=== PATIENT | female | born 1995 | race American Indian/Alaskan Native ===

== ENCOUNTER 2017-07-11 20:57 | Emergency (ER) | payer MEDICAID ==
[2017-07-11 22:36] VITALS: BP 130/73
[2017-07-11 23:31] LABS: Basophils % (Auto) 0.1 % (0.0-1.8); Eosinophils # (Auto) 0.1 K/mm3 (0.0-0.4); Eosinophils % (Auto) 0.8 % (0.0-4.3); Hematocrit 38.3 % (30.3-42.9); Hemoglobin 12.1 gm/dl (10.1-14.3); Lymphocytes # (Auto) 3.7 K/mm3 (1.2-5.4); Lymphocytes % (Auto) 29.1 % (13.4-35.0); Mean Corpuscular HGB Conc 32 % (30-34); Mean Corpuscular Volume 78 fl (79-97); Monocytes # (Auto) 1.1 K/mm3 (0.0-0.8); Monocytes % (Auto) 8.7 % (0.0-7.3); Platelet Count 338 K/mm3 (140-440); Red Blood Count 4.88 M/mm3 (3.65-5.03); Red Cell Distribution Width 15.4 % (13.2-15.2)
[2017-07-11 23:43] LABS: Alanine Aminotransferase 28 units/L (7-56); Albumin 4.3 g/dL (3.9-5); BUN/Creatinine Ratio 15; Blood Urea Nitrogen 9 mg/dL (7-17); Calcium 9.5 mg/dL (8.4-10.2); Hemolysis Index 0
[2017-07-11 23:49] LABS: Mean Corpuscular Hemoglobin 25 pg (28-32)
[2017-07-12 00:42] LABS: Bilirubin,Urine NEG (Negative); Blood,Urine NEG (Negative); Color,Urine Yellow (Yellow); Mucus,Urine 3+ /HPF; Nitrite,Urine NEG (Negative); Protein,Urine <15 mg/dL mg/dL (Negative); Urobilinogen,Urine < 2.0 mg/dL (<2.0)
== END 2017-07-12 00:19 | disposition left against medical advice (07) ==
LOC: ED 20:57
DX: O26.891 Other specified pregnancy related conditions, first trimester (principal); R10.9 Unspecified abdominal pain; Z53.21 Procedure and treatment not carried out due to patient leaving prior to being seen by health care provider
CPT/HCPCS: 36415; 80053; 81001; 84703; 85025

== ENCOUNTER 2017-10-05 21:55 | Emergency (ER) | payer MEDICAID ==
[2017-10-05 22:51] LABS: Basophils % (Auto) 0.1 % (0.0-1.8); Eosinophils # (Auto) 0.2 K/mm3 (0.0-0.4); Eosinophils % (Auto) 1.9 % (0.0-4.3); Hematocrit 39.3 % (30.3-42.9); Hemoglobin 12.3 gm/dl (10.1-14.3); Lymphocytes # (Auto) 3.6 K/mm3 (1.2-5.4); Lymphocytes % (Auto) 29.3 % (13.4-35.0); Mean Corpuscular HGB Conc 31 % (30-34); Mean Corpuscular Volume 81 fl (79-97); Monocytes # (Auto) 0.9 K/mm3 (0.0-0.8); Monocytes % (Auto) 7.3 % (0.0-7.3); Platelet Count 301 K/mm3 (140-440); Red Blood Count 4.86 M/mm3 (3.65-5.03); Red Cell Distribution Width 14.6 % (13.2-15.2)
[2017-10-05 22:59] LABS: Mean Corpuscular Hemoglobin 25 pg (28-32)
[2017-10-05 23:10] LABS: BUN/Creatinine Ratio 12; Blood Urea Nitrogen 7 mg/dL (7-17); Calcium 9.7 mg/dL (8.4-10.2); Hemolysis Index 13
[2017-10-05 23:39] LABS: Bacteria,Urine 4+ /HPF (Negative); Bilirubin,Urine NEG (Negative); Blood,Urine NEG (Negative); Color,Urine Yellow (Yellow); Mucus,Urine FEW /HPF; Protein,Urine <15 mg/dL mg/dL (Negative); Urobilinogen,Urine < 2.0 mg/dL (<2.0)
[2017-10-05 23:48] LABS: Amphetamine Screen,Urine PRESUMPTIVE NEGATIVE; Benzodiazepines Screen,Urine PRESUMPTIVE NEGATIVE; Cocaine Screen,Urine PRESUMPTIVE NEGATIVE; Methadone Screen,Urine PRESUMPTIVE NEGATIVE; Opiate Screen,Urine PRESUMPTIVE NEGATIVE
[2017-10-06 00:01] LABS: Cannabinoid Screen,Urine PRESUMPTIVE POSITIVE
--- NOTE | 2017-10-06 00:51 | Emergency Department Report ---
HPI - General Chief Complaint: Psych Time Seen by Provider: 10/06/17 00:26 - HPI HPI: Room 14 --> 15 The patient is a 22-year-old female presenting with a chief complaint of suicidal ideation. The patient states she came to the emergency department because she's had abdominal pain and suicidal ideation since yesterday. The patient states her daughter 2 years ago and this upsets her. The patient states since yesterday she has had suicidal ideation with plan to overdose on pills. Patient denies any actual attempt at harming herself. The patient states also since yesterday she's had midepigastric abdominal pain patient radiating down to the right lower quadrant/suprapubic region since yesterday. Patient currently denies abdominal pain. Patient denies nausea vomiting or diarrhea. Patient denies fever or vaginal bleeding. Location: Mental state, abdomen Duration: Constant since yesterday Quality: Suicidal Severity: Severe Modifying factors: [see above] Context: [see above] Mode of transportation: [not driving] ED Past Medical Hx - Past Medical History Hx Diabetes: Yes Hx Psychiatric Treatment: Yes (bipolar,depression,suicide attempts,drug abuse) Additional medical history: childbirth - Surgical History Past Surgical History?: No - Family History Family history: no significant - Social History Smoking Status: Never Smoker Substance Use Type: Marijuana - Medications Home Medications: Home Medications Medication Instructions Recorded Confirmed Last Taken Type metFORMIN [Glucophage] 500 mg PO BID 04/10/16 04/10/16 04/10/16 History ED Review of Systems ROS: Stated complaint: MH Other details as noted in HPI Constitutional: denies: fever Gastrointestinal: abdominal pain. denies: nausea, vomiting, diarrhea Genitourinary: denies: abnormal menses Psychiatric: suicidal thoughts Physical Exam - Physical Exam Vital Signs: Vital Signs 10/05/17 10/05/17 10/06/17 21:55 22:16 00:37 Temperature 98.4 F 98.4 F 98 F Pulse Rate 94 H 94 H 89 Respiratory 20 18 18 Rate Blood Pressure 133/79 133/79 Blood Pressure 132/77 [Left] O2 Sat by Pulse 99 99 100 Oximetry Physical Exam: GENERAL: The patient is well-developed well-nourished female standing in room not appearing to be in acute distress. [] HEENT: Normocephalic. Atraumatic. Extraocular motions are intact. Patient has moist mucous membranes. NECK: Supple. Trachea midline CHEST/LUNGS: Clear to auscultation. There is no respiratory distress noted. HEART/CARDIOVASCULAR: Regular. There is no tachycardia. There is no gallop rub or murmur. ABDOMEN: Abdomen is soft, nontender to palpation. There is no rebound or guarding. Patient has normal bowel sounds. SKIN: There is no rash. There is no diaphoresis. NEURO: The patient is awake, alert, and oriented. The patient is cooperative. The patient has normal speech and gait. MUSCULOSKELETAL:There is no evidence of acute injury. ED Course Vital Signs 10/05/17 10/05/17 10/06/17 21:55 22:16 00:37 Temperature 98.4 F 98.4 F 98 F Pulse Rate 94 H 94 H 89 Respiratory 20 18 18 Rate Blood Pressure 133/79 133/79 Blood Pressure 132/77 [Left] O2 Sat by Pulse 99 99 100 Oximetry ED Medical Decision Making - Lab Data Result diagrams: 10/05/17 22:26 10/05/17 22:26 Laboratory Tests 10/05/17 10/05/17 10/05/17 22:26 22:26 22:26 WBC RBC Hgb Hct MCV MCH MCHC RDW Plt Count Lymph % (Auto) [place] % (Auto) Eos % (Auto) Baso % (Auto) Lymph # [place] # Eos # Baso # Seg Neutrophils % Seg Neutrophils # Sodium 138 Potassium 3.7 Chloride 98.1 Carbon Dioxide 25 Anion Gap 19 BUN 7 Creatinine 0.6 L Estimated GFR > 60 BUN/Creatinine Ratio 12 Glucose 109 H Calcium 9.7 HCG, Quant Urine Color Urine Turbidity Urine pH Ur Specific [place] Urine Protein Urine Glucose (UA) Urine Ketones Urine Blood Urine Nitrite Urine Bilirubin Urine Urobilinogen Ur Leukocyte Esterase Urine WBC (Auto) Urine RBC (Auto) U Epithel Cells (Auto) Urine Bacteria (Auto) Urine Mucus Urine HCG, Qual Salicylates < 0.3 L Urine Opiates Screen Urine Methadone Screen Acetaminophen < 5.0 L Ur Barbiturates Screen Ur Phencyclidine Scrn Ur Amphetamines Screen U Benzodiazepines Scrn Urine Cocaine Screen U Marijuana (THC) Screen Drugs of Abuse Note Plasma/Serum Alcohol 10/05/17 10/05/17 10/05/17 22:26 22:26 23:10 WBC 12.2 H RBC 4.86 Hgb 12.3 Hct 39.3 MCV 81 MCH 25 L MCHC 31 RDW 14.6 Plt Count 301 Lymph % (Auto) 29.3 [place] % (Auto) 7.3 Eos % (Auto) 1.9 Baso % (Auto) 0.1 Lymph # 3.6 [place] # 0.9 H Eos # 0.2 Baso # 0.0 Seg Neutrophils % 61.4 Seg Neutrophils # 7.5 Sodium Potassium Chloride Carbon Dioxide Anion Gap BUN Creatinine Estimated GFR BUN/Creatinine Ratio Glucose Calcium HCG, Quant Urine Color Yellow Urine Turbidity Clear Urine pH 5.0 Ur Specific [place] 1.021 Urine Protein <15 mg/dl Urine Glucose (UA) Neg Urine Ketones Neg Urine Blood Neg Urine Nitrite Pos Urine Bilirubin Neg Urine Urobilinogen < 2.0 Ur Leukocyte Esterase Sm Urine WBC (Auto) 14.0 H Urine RBC (Auto) 4.0 U Epithel Cells (Auto) 12.0 Urine Bacteria (Auto) 4+ Urine Mucus Few Urine HCG, Qual Salicylates Urine Opiates Screen Urine Methadone Screen Acetaminophen Ur Barbiturates Screen Ur Phencyclidine Scrn Ur Amphetamines Screen U Benzodiazepines Scrn Urine Cocaine Screen U Marijuana (THC) Screen Drugs of Abuse Note Plasma/Serum Alcohol < 0.01 10/05/17 10/06/17 10/06/17 23:10 00:38 02:16 WBC RBC Hgb Hct MCV MCH MCHC RDW Plt Count Lymph % (Auto) [place] % (Auto) Eos % (Auto) Baso % (Auto) Lymph # [place] # Eos # Baso # Seg Neutrophils % Seg Neutrophils # Sodium Potassium Chloride Carbon Dioxide Anion Gap BUN Creatinine Estimated GFR BUN/Creatinine Ratio Glucose Calcium HCG, Quant < 2 Urine Color Urine Turbidity Urine pH Ur Specific [place] Urine Protein Urine Glucose (UA) Urine Ketones Urine Blood Urine Nitrite Urine Bilirubin Urine Urobilinogen Ur Leukocyte Esterase Urine WBC (Auto) Urine RBC (Auto) U Epithel Cells (Auto) Urine Bacteria (Auto) Urine Mucus Urine HCG, Qual Negative Salicylates Urine Opiates Screen Presumptive negative Urine Methadone Screen Presumptive negative Acetaminophen Ur Barbiturates Screen Presumptive negative Ur Phencyclidine Scrn Presumptive negative Ur Amphetamines Screen Presumptive negative U Benzodiazepines Scrn Presumptive negative Urine Cocaine Screen Presumptive negative U Marijuana (THC) Screen Presumptive positive Drugs of Abuse Note Disclamer Plasma/Serum Alcohol - Radiology Data Radiology results: report reviewed (right upper quadrant ultrasound), image reviewed (right upper quadrant ultrasound) Right upper quadrant ultrasound (read by radiologist)- Normal-appearing gallbladder and biliary tree - Differential Diagnosis suicidal ideation, UTI, , Critical care attestation.: If time is entered above; I have spent that time in minutes in the direct care of this critically ill patient, excluding procedure time. ED Disposition Clinical Impression: Suicidal ideation Disposition: [id number]/TX-65 PSY HOSP/PSY UNIT Is pt being admited?: No Does the pt Need Aspirin: No Condition: Serious Referrals: PRIMARY CARE, [Primary Care Provider] - 3-5 Days Time of Disposition: 02:49 (awaiting acceptance)
[2017-10-06 01:01] LABS: HCG Qualitative,Urine Negative (Negative)
--- NOTE | 2017-10-06 02:00 | Ultrasound Report ---
FINAL REPORT EXAM: US ABDOMEN LIMITED HISTORY: intermittent right upper quadrant abdominal pain TECHNIQUE: Routine imaging was obtained of the right upper quadrant. FINDINGS: The gallbladder is normal in size and wall thickness. Stones are not seen. The common bile duct measures 4 mm in diameter which is normal. The liver is normal size and echotexture. The pancreatic head appears normal. The body and tail are obscured by bowel gas. The right kidney is normal size contour and echotexture. There is no evidence of hydronephrosis. IMPRESSION: Normal-appearing gallbladder and biliary tree.
--- NOTE | 2017-10-06 13:40 | Consultation ---
History of Present Illness - Reason for Consult Consult date: 10/06/17 Reason for consult: Initial Psychiatric Evaluation - Chief Complaint Chief complaint: " Bad thoughts" - History of Present Psychiatric Illness The patient is a 22-year-old female who presents with a chief complaint of suicidal ideation. She has a plan to overdose on pills. She has a PPHx Bipolar Disorder (2015). She reports within the last week her symptoms have exacerbated after a card reading/psychic. She states, "recently, I found out I have uterine fibroids while in [place]." She reports decrease sleep, decrease appetite, and good energy. Endorses being easily irritated/agitated. Paranoid thoughts are noted. Patient hesitant to share thoughts. Appears suspicious of provider. Patient states that she self medicated with marijuana. Currently patient is not taking any psychiatric medications. She denies A/VH. Allergies: See list. Gelatin, latex, pork/porcin. Past psychiatric history: ODD (2010), ADHD (2010), bipolar (2014); 4 previous suicide attempts be drink intoxicants and taking pills; no outpatient psychiatrist; 3 previous inpatient psychiatric hospitalizations ([place] and [facility]). Past psychiatric medication trials: Trazodone-bad dreams; Seroquel- makes me gain weight; Zoloft-somewhat effective. History of trauma/abuse: Patient denies physical, sexual, or mental abuse. Drugs/alcohol abuse history: Marijuana- daily, approximately "10 blunts daily, " duration - all throughout the day, last use- 10/05/17, first use- age 13. UDS positive for marijuana. Social history: 11th grade; unemployed-no source of income; one daughter 2014 (stillborn); (2014); good support system-mother, best friend, and . Family history: Patient denies family history of psychiatric/substance abuse. Medications and Allergies Allergies Allergy/AdvReac Type Severity Reaction Status Date / Time gelatin Allergy Rash Verified 03/23/16 12:11 latex Allergy Rash Verified 03/23/16 12:11 Pork/Porcine Containing Allergy Rash Verified 03/23/16 12:11 Products Home Medications Medication Instructions Recorded Confirmed Last Taken Type metFORMIN [Glucophage] 500 mg PO BID 04/10/16 10/06/17 04/10/16 History Mental Status Exam - Vital signs Last Vital Signs Temp 98.6 F 10/06/17 08:00 Pulse 88 10/06/17 08:00 Resp 18 10/06/17 08:00 BP 137/75 10/06/17 08:00 Pulse Ox 98 10/06/17 08:00 - Exam Narrative exam: Mental Status Exam: General Appearance: Casually dressed- hospital gown Attitude/ Behavior: Cooperative Sensorium: Clear but at times distracted Orientation: Alert and oriented x 4 (person, place, time , and situation) Psychomotor & Musculoskeletal Activity: Ambulatory Speech: Normal rate and tone Mood: "Anxious and depressed" Affect: Constricted Thought Process: Circumstantial Thought Content: Reality oriented but paranoid Perception: Patient denies auditory/visual/tactile hallucinations Suicidal ideation/plan: + suicidal ideations with plan to overdose (intermittent ) Homicidal ideation/plan: Patient denies Insight: Poor Judgment: Poor Results Result Diagrams: 10/05/17 22:26 10/05/17 22:26 Abnormal lab results 10/05/17 10/05/17 10/05/17 Range/Units 22:26 22:26 22:26 WBC (4.5-11.0) K/mm3 MCH (28-32) pg [place] # (0.0-0.8) K/mm3 Creatinine 0.6 L (0.7-1.2) mg/dL Glucose 109 H (65-100) mg/dL Urine WBC (Auto) (0.0-6.0) /HPF Salicylates < 0.3 L (2.8-20.0) mg/dL Acetaminophen < 5.0 L (10.0-30.0) ug/mL 10/05/17 10/05/17 Range/Units 22:26 23:10 WBC 12.2 H (4.5-11.0) K/mm3 MCH 25 L (28-32) pg [place] # 0.9 H (0.0-0.8) K/mm3 Creatinine (0.7-1.2) mg/dL Glucose (65-100) mg/dL Urine WBC (Auto) 14.0 H (0.0-6.0) /HPF Salicylates (2.8-20.0) mg/dL Acetaminophen (10.0-30.0) ug/mL All other labs normal. Assessment and Plan Assessment and plan: Impression:The patient is a 22-year-old female who presents with a chief complaint of suicidal ideation. PPHx Bipolar Disorder. Today patient presents anxious and depressed. She endorses suicidal ideations with plan to overdose. Paranoid thoughts are noted during the assessment. She denies auditory/visual/ tactile hallucinations. Per patient in the past seroquel and trazodone has been ineffective/negative side effects in regards to controlling patient's symptoms. DDX: MDD, recurrent, severe with psychotic features r/o Bipolar disorder, depressed type with psychotic features Recommendations/plan: 1. Continue 1013 and reassess in 24 hours. 2. Start Abilify 5mg po QHS for mood/psychosis. 3. Discussed metabolic side effects to Abilify. Patient verbalizes full understanding. 4. Will monitor mood, psychosis, sleep, appetite, compliance, and side effects to medication. 5. Patient accepted to [facility]. Awaiting transport.
[2017-10-06 16:05] VITALS: BP 117/78
[2017-10-06] MEDS ORDERED: ABILIFY PO SCH (22:00)
== END 2017-10-06 19:00 ==
LOC: EEVIPCON 21:55 → ED 21:55
DX: F31.9 Bipolar disorder, unspecified (principal); E11.9 Type 2 diabetes mellitus without complications; F12.10 Cannabis abuse, uncomplicated
CPT/HCPCS: 36415; 76705; 80048; 80307; 81001; 85025; 99285; G0480; 80320

== ENCOUNTER 2020-02-13 21:55 | Emergency (ER) | payer MEDICAID ==
[2020-02-13 22:21] VITALS: BP 128/73
[2020-02-13 22:55] LABS: Bacteria,Urine 1+ /HPF (Negative); Bilirubin,Urine NEG (Negative); Blood,Urine NEG (Negative); Color,Urine Yellow (Yellow); Mucus,Urine FEW /HPF; Protein,Urine <15 mg/dL mg/dL (Negative); Urobilinogen,Urine < 2.0 mg/dL (<2.0)
[2020-02-13 23:11] LABS: Basophils % (Auto) 0.1 % (0.0-1.8); Eosinophils # (Auto) 0.1 K/mm3 (0.0-0.4); Eosinophils % (Auto) 1.3 % (0.0-4.3); Hematocrit 33.5 % (30.3-42.9); Hemoglobin 11.1 gm/dl (10.1-14.3); Lymphocytes # (Auto) 3.5 K/mm3 (1.2-5.4); Lymphocytes % (Auto) 36.7 % (13.4-35.0); Mean Corpuscular HGB Conc 33 % (30-34); Mean Corpuscular Volume 81 fl (79-97); Monocytes # (Auto) 0.9 K/mm3 (0.0-0.8); Monocytes % (Auto) 9.5 % (0.0-7.3); Platelet Count 287 K/mm3 (140-440); Red Blood Count 4.15 M/mm3 (3.65-5.03); Red Cell Distribution Width 15.1 % (13.2-15.2)
--- NOTE | 2020-02-14 02:01 | Ultrasound Report ---
Obstetrical ultrasound. HISTORY: Abdominal cramping. FINDINGS: Imaging was performed by transabdominally and endovaginally. The uterus measures 11.4 x 5 x 6.5 cm. The endometrial stripe measures 1.7 cm. An early intrauterine is dated 6 weeks 4 d ays. heart tones are 122 bpm. Right ovary measures 3.4 x 2.8 x 2.1 cm. Left ovary measures 4.9 x 3.5 x 4.9 cm a mildly complex cyst measures 2.8 cm. The ovaries demonstrate flow. Negative for adnexal mass. A small amount of free fluid is present. IMPRESSION: 1. Early intrauterine dated 6 weeks 4 days. 2. Mildly complex cyst left ovary. 3. Small amount of free fluid. Signer Name: Javier Winters MD Signed: 02/14/2020 1:56 AM Workstation Name: [id number]
--- NOTE | 2020-02-14 02:30 | Emergency Department Report ---
ED Abdominal Pain HPI - General Chief Complaint: Abdominal Pain Stated Complaint: UPPER ABDOMINAL CRAMPS Time Seen by Provider: 02/14/20 00:58 Source: patient Mode of arrival: Ambulatory Limitations: No Limitations - History of Present Illness Initial Comments: Patient is a 24-year-old -[place] female who presents for right upper quadrant pain x3 days. Patient is currently tolerating p.o. intake , Patient states positive test at home. Patient is A1 one 1 year ago. There is no fever chills, no nausea vomiting, no vaginal bleeding, no vaginal discharge, patient denies concern for STI. She does have follow-up [employer] appointment however she is not had a intake physical at this point. She is concerned with abdominal cramping and wants to make sure her baby is okay. Complaint: abdominal pain Onset/Timin -: days(s) Location: RUQ Radiation: none Severity scale (0 -10): 3 Quality: cramping Consistency: intermittent Improves With: nothing Worsens With: nothing Context: other (6 weeks ) Associated Symptoms: denies: nausea, vomiting, diarrhea, fever, chills, dysuria - Related Data LMP Date: 12/29/19 LMP (females 10-50): 2 months Home Medications Medication Instructions Recorded Confirmed Last Taken metFORMIN [Glucophage] 500 mg PO BID 04/10/16 10/06/17 04/10/16 Previous Rx's Medication Instructions Recorded Last Taken Type Acetaminophen [Tylenol] 650 mg PO Q6HR PRN #30 tablet 02/14/20 Unknown Rx cephALEXin [Keflex] 500 mg PO BID 7 Days #14 cap 02/14/20 Unknown Rx Allergies Allergy/AdvReac Type Severity Reaction Status Date / Time gelatin Allergy Rash Verified 03/23/16 12:11 latex Allergy Rash Verified 03/23/16 12:11 Pork/Porcine Containing Allergy Rash Verified 03/23/16 12:11 Products ED Review of Systems ROS: Stated complaint: UPPER ABDOMINAL CRAMPS Other details as noted in HPI Constitutional: denies: chills, fever Eyes: denies: eye pain, eye discharge, vision change ENT: denies: ear pain, throat pain Respiratory: denies: cough, shortness of breath, wheezing Cardiovascular: as per HPI Endocrine: no symptoms reported Gastrointestinal: abdominal pain. denies: nausea, vomiting, diarrhea, constipation Genitourinary: denies: urgency, dysuria, frequency, hematuria, discharge, dysp areunia Musculoskeletal: denies: back pain, joint swelling, arthralgia Skin: as per HPI Neurological: as per HPI Psychiatric: as per HPI Hematological/Lymphatic: denies: easy bleeding, easy bruising ED Past Medical Hx - Past Medical History Previous Medical History?: Yes Hx Diabetes: Yes Hx Psychiatric Treatment: Yes (bipolar,depression,suicide attempts,drug abuse) Additional medical history: Obesity - Surgical History Past Surgical History?: No - Social History Smoking Status: Never Smoker Substance Use Type: None - Medications Home Medications: Home Medications Medication Instructions Recorded Confirmed Last Taken Type metFORMIN [Glucophage] 500 mg PO BID 04/10/16 10/06/17 04/10/16 History Acetaminophen [Tylenol] 650 mg PO Q6HR PRN #30 tablet 02/14/20 Unknown Rx cephALEXin [Keflex] 500 mg PO BID 7 Days #14 cap 02/14/20 Unknown Rx ED Physical Exam - General Limitations: No Limitations General appearance: alert, in no apparent distress - Head Head exam: Present: atraumatic, normocephalic - Eye Eye exam: Present: normal appearance, EOMI Pupils: Present: normal accommodation - ENT ENT exam: Present: mucous membranes moist - Neck Neck exam: Present: normal inspection, full ROM. Absent: tenderness, lymphadenopathy, thyromegaly - Respiratory Respiratory exam: Present: normal lung sounds bilaterally. Absent: respiratory distress, wheezes, stridor, chest wall tenderness - Cardiovascular Cardiovascular Exam: Present: regular rate, normal rhythm, normal heart sounds. Absent: systolic murmur, diastolic murmur, rubs, gallop - GI/Abdominal GI/Abdominal exam: Present: soft, normal bowel sounds. Absent: distended, tenderness, bruit, hernia - Rectal Rectal exam: Present: deferred - External exam: Present: other (defered per patient ) - Extremities Exam Extremities exam: Present: normal inspection, full ROM, normal capillary refill. Absent: tenderness, pedal edema - Back Exam Back exam: Present: normal inspection, full ROM. Absent: tenderness, CVA tenderness (R), CVA tenderness (L), vertebral tenderness, rash noted - Neurological Exam Neurological exam: Present: alert, oriented X3, CN II-XII intact, reflexes normal - Psychiatric Psychiatric exam: Present: normal affect, normal mood - Skin Skin exam: Present: warm, dry, intact, normal color. Absent: rash ED Course Vital Signs 02/13/20 22:16 Temperature 98.2 F Pulse Rate 103 H Respiratory 18 Rate Blood Pressure 128/73 O2 Sat by Pulse 100 Oximetry ED Medical Decision Making - Lab Data Result diagrams: 02/13/20 22:46 Labs 02/13/20 02/13/20 02/13/20 22:28 22:46 22:46 WBC 9.6 RBC 4.15 Hgb 11.1 Hct 33.5 MCV 81 MCH 27 L MCHC 33 RDW 15.1 Plt Count 287 Lymph % (Auto) 36.7 H [place]w % (Auto) 9.5 H Eos % (Auto) 1.3 Baso % (Auto) 0.1 Lymph # 3.5 [place]w # 0.9 H Eos # 0.1 Baso # 0.0 Seg Neutrophils % 52.4 Seg Neutrophils # 5.0 HCG, Quant 7417 H Urine Color Yellow Urine Turbidity Clear Urine pH 6.0 Ur Specific [place] 1.015 Urine Protein <15 mg/dl Urine Glucose (UA) Neg Urine Ketones Neg Urine Blood Neg Urine Nitrite Neg Urine Bilirubin Neg Urine Urobilinogen < 2.0 Ur Leukocyte Esterase Mod Urine WBC (Auto) 6.0 Urine RBC (Auto) 3.0 U Epithel Cells (Auto) 7.0 Urine Bacteria (Auto) 1+ Urine Mucus Few - Radiology Data Radiology results: report reviewed, image reviewed Findings Reporting MD: Javier Winters Dictation Time: February 14, 2020 00:56 Tourist Agent: Not available Insurance Account Assistant Date: Obstetrical ultrasound. HISTORY: Abdominal cramping. FINDINGS: Imaging was performed by transabdominally and endovaginally. The uterus measures 11.4 x 5 x 6.5 cm. The endometrial stripe measures 1.7 cm. An e jeff intrauterine is dated 6 weeks 4 days. heart tones are 122 bpm. Right ovary measures 3.4 x 2.8 x 2.1 cm. Left ovary measures 4.9 x 3.5 x 4.9 cm a mildly complex cyst measures 2.8 cm. The ovaries demonstrate flow. Negative for adnexal mass. A small amount of free fluid is present. IMPRESSION: 1. Early intrauterine dated 6 weeks 4 days. 2. Mildly complex cyst left ovary. 3. Small amount of free fluid. Signer Name: Javier Winters MD Signed: 02/14/2020 12:56 AM Workstation Name: [id number] - Medical Decision Making US OB, Single IUP 6 weeks and 4 days, Ovarian cyst left left, , UTI, pt continues to tolerate po intake , v/s recheck normal, plan, tx for UTI, follow up with OBGYN in 2-3 days , return if symptoms worsen, pt verbalized agreement and understanding of discharge plan. pt is currently a/o x 3 ambulatory with steady gait. Critical care attestation.: If time is entered above; I have spent that time in minutes in the direct care of this critically ill patient, excluding procedure time. ED Disposition Clinical Impression: Abdominal pain during in first trimester Qualifiers: Weeks of gestation: less than 8 weeks Qualified Code(s): Z3A.01 - Less than 8 weeks gestation of UTI (urinary tract infection) during Qualifiers: Trimester: first trimester Qualified Code(s): O23.41 - Unspecified infection of urinary tract in , first trimester Disposition: DC-01 TO HOME OR SELFCARE Is pt being admited?: No Does the pt Need Aspirin: No Condition: Stable Instructions: Urinary Tract Infection in Women (ED), (ED) Additional Instructions: 6 weeks and 4 days, Heart Rate 122 bpm, follow up with OBGYN in 2-3 days , return to emergency if symptoms worsen. Prescriptions: Acetaminophen [Tylenol] 650 mg PO Q6HR PRN #30 tablet PRN Reason: Pain cephALEXin [Keflex] 500 mg PO BID 7 Days #14 cap Referrals: MARÍA DYER MD [Staff Physician] - 3-5 Days Forms: Work/School Release Form(ED)
== END 2020-02-14 02:43 | disposition home or self-care (01) ==
LOC: ED 21:55
DX: O23.41 Unspecified infection of urinary tract in pregnancy, first trimester (principal); O99.211 Obesity complicating pregnancy, first trimester; O24.911 Unspecified diabetes mellitus in pregnancy, first trimester; O99.341 Other mental disorders complicating pregnancy, first trimester; F25.1 Schizoaffective disorder, depressive type; Z3A.01 Less than 8 weeks gestation of pregnancy; Z91.040 Latex allergy status; Z88.8 Allergy status to other drugs, medicaments and biological substances; Z79.899 Other long term (current) drug therapy; Z68.42 Body mass index [BMI] 45.0-49.9, adult
CPT/HCPCS: 36415; 76801; 81001; 84702; 85025